=== PATIENT | female | born 2000 | race Caucasian/White ===

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

== ENCOUNTER 2024-08-13 15:32 | Emergency (ER) | payer MEDICAID, OTHER ==
[~2024-08-13] VITALS: Ht 162.6 cm; Wt 94.7 kg
[2024-08-13 15:49] VITALS: TEMP 97.3
[2024-08-13] MEDS: MORPHINE 4 MG/ML 1ML VIAL IV PRN (16:13)
[2024-08-13] MEDS ORDERED: ISOVUE-370 76% 100ML VIAL As Ordered ONE (16:16)
[2024-08-13 16:31] LABS: BASO # 0.1 10^3/uL (0.0-0.2); BASO % 0.2 % (0.0-1.0); EOS % 0.2 % (0.0-3.0); HEMATOCRIT 40.5 % (36.0-47.0); HEMOGLOBIN 13.6 g/dl (12.0-15.5); LYMPH # 2.2 10^3/uL (1.5-5.0); LYMPH % 9.9 % (24.0-44.0); MEAN CORPUSCULAR HGB CONC 33.6 g/dl (32.0-36.5); MEAN CORPUSCULAR VOLUME 83.3 fl (80.0-96.0); MONO % 4.5 % (2.0-8.0); NEUTROPHILS # 18.5 10^3/uL (1.5-8.5); NEUTROPHILS % 84.5 % (36.0-66.0); PLATELET COUNT, AUTOMATED 292 10^3/uL (150-450); RED BLOOD COUNT 4.86 10^6/uL (4.00-5.40); WHITE BLOOD COUNT 21.8 10^3/uL (4.0-10.0)
[2024-08-13 16:57] LABS: BLOOD UREA NITROGEN 12 MG/DL (9-23); CALCIUM LEVEL 8.7 MG/DL (8.5-10.1); CARBON DIOXIDE LEVEL 24 MMOL/L (20-31); CHLORIDE LEVEL 106 MMOL/L (98-107); CREATININE FOR GFR 0.48 MG/DL (0.55-1.30); GLOMERULAR FILTRATION RATE > 60.0 (>60); GLUCOSE, FASTING 170 MG/DL (60-100); POTASSIUM SERUM 3.9 MMOL/L (3.5-5.1); SODIUM LEVEL 141 MMOL/L (136-145)
[2024-08-13] MEDS: NS (Normal Saline) 0.9% 1,000 ML IV SCH (17:30)
[2024-08-13] MEDS: fentaNYL 100 MCG/2 ML INJECTION IV ONE ×3 (17:35→17:55)
[2024-08-13] MEDS: propofoL 200 MG/20 ML VIAL IV.PROC PRN (17:39)
[2024-08-13 19:51] VITALS: BP 145/70; O2SAT 98
== END 2024-08-13 20:51 | disposition home or self-care (01) ==
LOC: M ED 15:32 → EDBD 15:32 → M ED 20:51
DX: S73.004A Unspecified dislocation of right hip, initial encounter (principal); Y92.410 Unspecified street and highway as the place of occurrence of the external cause; Y93.9 Activity, unspecified; Y99.9 Unspecified external cause status; V49.50XA Passenger injured in collision with unspecified motor vehicles in traffic accident, initial encounter; F17.290 Nicotine dependence, other tobacco product, uncomplicated; Z88.0 Allergy status to penicillin
CPT/HCPCS: 70450; 71260; 72125; 72128; 72131; 73501; 73502; 73552; 73564; 73590; 74177; 80047; 80048; 84702; 85025; 93041; 94760; 96361; 96374; 99152; 99153; 99285; J3010; Q9967

== ENCOUNTER → 2024-08-14 | Outpatient (CLI) | payer OTHER | LOC: M SOG 10:03 | PROVIDERS: ATTEND Orthopaedic Surgery | DX: M25.551 Pain in right hip (principal) ==